=== PATIENT | female | born 1965 | race Caucasian/White ===

== ENCOUNTER → 2016-10-04 | Outpatient (CLI) | payer BC, OTHER ==
[~2016-10-04] MED LIST: ASPI81TA28 PO; CALC1TAB27 PO; OMEG10007 PO; PRLSR20 PO; PROB1TAB16 PO
== END | disposition home or self-care (01) ==
LOC: C.LABSPEC 12:23
PROVIDERS: ATTEND Obstetrics & Gynecology
DX: B37.9 Candidiasis, unspecified (principal)

== ENCOUNTER → 2016-10-13 | Outpatient (CLI) | payer BC | END | disposition home or self-care (01) | LOC: C.PAPS 09:57 | PROVIDERS: ATTEND Obstetrics & Gynecology | DX: Z01.419 Encounter for gynecological examination (general) (routine) without abnormal findings (principal) ==

== ENCOUNTER → 2017-07-07 | Outpatient (CLI) | payer BC ==
--- NOTE | 2017-07-07 09:43 | DIAGNOSTIC IMAGING REPORT ---
ABDOMINAL ULTRASOUND, RIGHT UPPER QUADRANT HISTORY: Gallbladder polyp. Follow-up.. COMPARISON: Abdominal ultrasound 09/08/2015. FINDINGS: Pancreas: The pancreas demonstrates a normal echotexture. Liver: Unremarkable. Gallbladder: No gallbladder wall thickening. No gallstones. Trace gallbladder sludge. No evidence for a gallbladder polyp. CBD: 4 mm. Right kidney: No hydronephrosis. IMPRESSION: No gallbladder polyp identified. Trace gallbladder sludge. Electronically signed by: Jorge Mota M.D. 07/07/2017 9:41 AM Dictated Date/Time: 07/07/2017 9:39 AM
== END | disposition home or self-care (01) ==
LOC: C.ULTR 06:56
PROVIDERS: ATTEND Internal Medicine Gastroenterology
DX: K82.4 Cholesterolosis of gallbladder (principal)

== ENCOUNTER → 2017-08-17 | Day surgery (SDC) | payer BC ==
[2017-08-09 13:58] VITALS: BMI 24.0
[~2017-08-17] VITALS: Ht 162.6 cm; Wt 63.6 kg
[~2017-08-17] MED LIST changes: -CALC1TAB27 PO; +LIDOCAINE HCL 2% 2 ML VIAL (20MG/ML) ONE; +MIDAZOLAM HCL 1 MG/ML 2ML VIAL ONE; +MULT-506 PO; -OMEG10007 PO; +ONDANSETRON INJ 2 MG/ML 2 ML VIAL ONE; +POLY335019 PO; +PROBIOTIC POWDER PO; +PROPOFOL IV EMULSION 10 MG/ML 20 ML VIAL IV ONE; +SODIUM CHLORIDE 0.9% 500ML 500 ML IV ONE
[2017-08-17 12:13] VITALS: Ht 162.6 cm; Wt 63.6 kg
--- NOTE | 2017-08-17 12:52 | Endo History and Physical ---
History & Physical Date of Service: Aug 17, 2017. Chief Complaint: REFLUX DESPITE BEING ON MEDS Referring Physician: DR KITCHEN History of Present Illness pain after swallowing Past Surgical History Hx Cardiac Surgery: No Hx Internal Defibrillator: No Hx Pacemaker: No Hx Abdominal Surgery: No Hx of Implantable Prosthesis: No Hx Post-Op Nausea and Vomiting: No Hx Cancer Surgery: No Hx Thoracic Surgery: No Hx Orthopedic: Yes (LEFT FOOT TOE PINNING, RT SHOULDER ARTHROSCOPY) Hx Urinary Tract Surgery: No Family History None Social History Smoking Status: Never Smoker Hx Substance Use: No Hx Alcohol Use: No Allergies Coded Allergies: Aminoglycosides (Verified Allergy, Intermediate, RASH, 08/17/17) Bacitracin (Verified Allergy, Intermediate, RASH, 08/17/17) Neomycin (Verified Allergy, Intermediate, RASH, 08/17/17) Polymyxin B (Verified Allergy, Intermediate, RASH, 08/17/17) Codeine (Verified Adverse Reaction, Unknown, GI SYMPTOMS, 08/17/17) NAUSEATED Current Medications Reported Home Medications Medications Dose Route/Sig Max Daily Dose Days Date Category Multivitamin (Multivitamins) Tab 1 Tab PO DAILY 08/09/17 Reported Probiotic (Probiotic Product) 1 Tab Tab 1 Tab PO DAILY 08/27/16 Reported Aspirin Ec (Aspirin) 81 Mg Tab 81 Mg PO DAILY 08/27/16 Reported Prilosec (Omeprazole) 20 Mg Capcr 20 Mg PO QAM 08/17/15 Reported Vital Signs Weight (Kilograms): 63.64 Height (Feet): 5 Height (Inches): 4 Date Time Temp Pulse Resp B/P (MAP) Pulse Ox O2 Delivery O2 Flow Rate FiO2 08/17/17 12:19 36.5 66 16 140/76 (97) 100 Room Air Physical Exam General Appearance: WD/WN, no apparent distress Respiratory/Chest: Auscultation: breath sounds normal Cardiovascular: Heart Auscultation: RRR Abdomen: Bowel Sounds: normal Inspection & Palpation: soft, non-distended, no tenderness, guarding & rebound Assessment and Plan EGD with Guillermo performed off acid suppression
--- NOTE | 2017-08-17 13:24 | GI REPORT ---
Procedure Date: 08/17/2017 12:20 PM Procedure: Upper GI endoscopy Indications: Dysphagia, Odynophagia, Gastro-esophageal reflux disease Medicines: Propofol per Anesthesia Complications: No immediate complications. Estimated blood loss: None. Estimated Blood Loss: Estimated blood loss: none. Procedure: Pre-Anesthesia Assessment: - Prior to the procedure, a History and Physical was performed, and patient medications and allergies were reviewed. The patient's tolerance of previous anesthesia was also reviewed. The risks and benefits of the procedure and the sedation options and risks were discussed with the patient. All questions were answered, and informed consent was obtained. Prior Anticoagulants: The patient has taken no previous anticoagulant or antiplatelet agents. ASA Grade Assessment: II - A patient with mild systemic disease. After reviewing the risks and benefits, the patient was deemed in satisfactory condition to undergo the procedure. After obtaining informed consent, the endoscope was passed under direct vision. Throughout the procedure, the patient's blood pressure, pulse, and oxygen saturations were monitored continuously. The On-site loaner was introduced through the mouth, and advanced to the second part of duodenum. The upper GI endoscopy was accomplished without difficulty. The patient tolerated the procedure well. Findings: The examined esophagus was normal. A small hiatus hernia was found. The proximal extent of the gastric folds (end of tubular esophagus) was 37 cm from the incisors. The hiatal narrowing was 39 cm from the incisors. The Z-line was 37 cm from the incisors. The entire examined stomach was normal. The examined duodenum was normal. The cardia and gastric fundus were normal on retroflexion. Retained gastric contents are not identified on this exam. The ALLEN capsule with delivery system was introduced through the mouth and advanced into the esophagus, such that the ALLEN pH capsule was positioned 31 cm from the incisors, which was 6 cm proximal to the EG junction. Suction was applied to the well of the ALLEN pH capsule to suck in the adjacent mucosa of the esophagus using the external vacuum pump set at a minimum vacuum pressure of 550 mmHg for 30 seconds. The ALLEN pH capsule was then deployed by depressing the plunger on top of the handle to advance the locking pin into the mucosa, thereby attaching the capsule to the esophagus. The plunger was then rotated a quarter turn clockwise to release the capsule from the delivery system. The delivery system was then withdrawn. Endoscopy was utilized for probe placement and diagnostic evaluation. Impression: - Normal esophagus. - Small hiatus hernia. - Normal stomach. - Normal examined duodenum. - The ALLEN pH capsule was positioned 31 cm from the naris, which was 6 cm proximal to the EG junction. - No specimens collected. Recommendation: - Discharge patient to home (ambulatory). - Resume regular diet. - Return to GI clinic as previously scheduled. - Pt instructed not to use any form of acid suppression for next 48 hr 9 PPI/H2 blockers/antacids/Tums) MD Dax Wilkins MD 08/17/2017 1:23:32 PM This report has been signed electronically. Note Initiated On: 08/17/2017 12:20 PM I attest to the content of the Intraoperative Record and orders documented therein, exceptions below
--- NOTE | 2017-08-17 13:26 | Discharge Instructions ---
Endoscopy Patient Instructions Date / Procedure(s) Performed Aug 17, 2017. EGD Allergy Information Coded Allergies: Aminoglycosides (Verified Allergy, Intermediate, RASH, 08/17/17) Bacitracin (Verified Allergy, Intermediate, RASH, 08/17/17) Neomycin (Verified Allergy, Intermediate, RASH, 08/17/17) Polymyxin B (Verified Allergy, Intermediate, RASH, 08/17/17) Codeine (Verified Adverse Reaction, Unknown, GI SYMPTOMS, 08/17/17) NAUSEATED Discharge Date / Findings Aug 17, 2017. HH; Guillermo placement Medication Instructions Restart Stopped Medication(s): Reported Home Medications Medications Dose Route/Sig Max Daily Dose Days Date Category Multivitamin (Multivitamins) Tab 1 Tab PO DAILY 08/09/17 Reported Probiotic (Probiotic Product) 1 Tab Tab 1 Tab PO DAILY 08/27/16 Reported Aspirin Ec (Aspirin) 81 Mg Tab 81 Mg PO DAILY 08/27/16 Reported Prilosec (Omeprazole) 20 Mg Capcr 20 Mg PO QAM 08/17/15 Reported Do not restart Prilosec or use any liquid antacids or other acid suppressing medication until the device is returned. Thank You Reported Home Medications Medications Dose Route/Sig Max Daily Dose Days Date Category Multivitamin (Multivitamins) Tab 1 Tab PO DAILY 08/09/17 Reported Probiotic (Probiotic Product) 1 Tab Tab 1 Tab PO DAILY 08/27/16 Reported Aspirin Ec (Aspirin) 81 Mg Tab 81 Mg PO DAILY 08/27/16 Reported Prilosec (Omeprazole) 20 Mg Capcr 20 Mg PO QAM 08/17/15 Reported Do not restart Prilosec or use any liquid antacids or other acid suppressing medication until the device is returned. Thank You Provider Instructions Activity Restrictions - No exercising or heavy lifting for 24 hours. - Do not drink alcohol the day of the procedure. - Do not drive a car or operate machinery until the day after the procedure. - Do not make any important decisions or sign important papers in 24 hours after the procedure. Following Day: - Return to full activity which may include returning to work/school. Diet Start your diet with liquids and light foods (jello, soup, juice, toast). Then eat your usual diet if not nauseated. Treatment For Common After Affects For mild abdominal pain, bloating, or excessive gas: - Rest - Eat lightly - Lie on right side Follow-Up Information Follow-up with DR KITCHEN as scheduled Anesthesia Information What You Should Know You have had a procedure that required some medicine to reduce anxiety and discomfort. This treatment is called moderate sedation. After receiving the treatment, you may be sleepy, but you will be able to breathe on your own. The effects of the treatment may last for several hours. Follow these instructions along with Activity/Diet recommendations noted above: * Do NOT do anything where dizziness or clumsiness would be dangerous. * Rest quietly at home today, then you can be up and about tomorrow. * Have a responsible person stay with you the rest of today. * You may have had an I.V. today. If so, you may take the dressing off later today. Recommendations Call your doctor if: * Trouble breathing * Continuous vomiting for more than 24 hours * Temperature above 101 degrees * Severe abdominal pain or bloating * Pain not relieved by pain medicine ordered * There is increased drainage or redness from any incision * A large amount of rectal bleeding greater than 2-3 tablespoons. (If you had a polyp/s removed or have hemorrhoids, a small amount of blood - from the rectum is to be expected.) * You have any unanswered questions or concerns. IN THE EVENT OF A SERIOUS EMERGENCY, GO TO THE NEAREST EMERGENCY ROOM Your discharge instructions were prepared by provider Dax Mancera. Patient Instructions Signature Page Jada Lynn Patient (or Guardian) Signature/Date: I have read and understand the instructions given to me by my caregivers. Caregiver/RN/Doctor Signature/Date: The above-named patient and/or guardian has received patient instructions on this date. + Original Patient Signature Page (only) stays with chart. Please make copy for patient.
--- NOTE | 2017-08-17 13:53 | Anesthesiology Progress Note ---
Anesthesia Post Op Note Date & Time Aug 17, 2017 at 13:53 Vital Signs Vital Signs Past 12 Hours Date Time Temp Pulse Resp B/P (MAP) Pulse Ox O2 Delivery O2 Flow Rate FiO2 08/17/17 13:45 68 20 100/75 (83) 100 Room Air 08/17/17 13:30 88 18 112/70 (84) 100 Room Air 08/17/17 12:19 36.5 66 16 140/76 (97) 100 Room Air Notes Mental Status: alert / awake / arousable, participated in evaluation Pt Amnestic to Procedure: Yes Nausea / Vomiting: adequately controlled Pain: adequately controlled Airway Patency, RR, SpO2: stable & adequate BP & HR: stable & adequate Hydration State: stable & adequate Anesthetic Complications: no major complications apparent
[2017-08-17 13:59] VITALS: BP 122/83; PULSE 64; O2SAT 100
--- NOTE | 2017-08-29 08:01 | OPERATIVE REPORT ---
DATE OF OPERATION: 08/17/2017 ENDOSCOPY PROCEDURE PROCEDURE TYPE: A 48-hour esophageal pH Guillermo. PREPROCEDURE DIAGNOSES: Heartburn and regurgitation. ENDOSCOPIST: Dax Mancera MD POSTPROCEDURE DIAGNOSES: 1. Normal amounts of acid exposure in the esophagus (see below). 2. No correlation with heartburn and regurgitation and acid exposure in the esophagus (see below). This study was performed off of acid suppressing medication. The Guillermo capsule was placed endoscopically 6 cm above the GE junction (Z line). The fraction time of the esophageal pH is less than 4.00 during the entire study. It was 0.2% (normal range less than 4.2%). The fraction time in upright position for the entire study period was 0.2% and 0.2% for the supine. These represent normal amounts of acid exposure during the entire study. The patient reported a total of 13 events of regurgitation and 7 events of heartburn during the 48 hours. None of the 13 regurgitation events correlated with an acidic esophageal environment. None of the heartburn symptoms correlated with an acidic esophageal environment. On day #1, the fraction time for the total first 24-hour period was 0.4% with upright and supine at 0.5% and 0.3% respectively. 5 of the 13 regurgitation events occurred on the first 24-hour period and again none correlated with the acidic pH. On day #2, the fraction time of pH less than 4.00 in the esophagus was 0.0% with no acid reflux occurring in the upright or supine positions during the second 24-hour period. During this event, the patient did experience 8 events of regurgitation and 7 events of heartburn, none of which correlated with acidic esophageal environment. IMPRESSION: 1. Normal amounts of acid exposure in the upright, supine and total periods on each day and for the entire study. 2. Symptoms of heartburn and regurgitation did not correlate with acid exposure in the esophagus. Consideration for a nonacid reflux as a source of the patient's symptoms could be considered with 24-hour pH impedance on b.i.d. PPI dosing. The patient is aware of these results at her recent clinic visit and plans for the above study at [facility] are in progress. I attest to the content of the Intraoperative Record and any orders documented therein. Any exception s are noted below.
== END | disposition home or self-care (01) ==
LOC: C.GI 11:57
PROVIDERS: ATTEND Internal Medicine Gastroenterology
DX: K21.9 Gastro-esophageal reflux disease without esophagitis (principal); K44.9 Diaphragmatic hernia without obstruction or gangrene; M19.90 Unspecified osteoarthritis, unspecified site; Z79.82 Long term (current) use of aspirin; Z79.899 Other long term (current) drug therapy

== ENCOUNTER → 2017-10-11 | Outpatient (CLI) | payer OTHER ==
[~2017-10-11] MED LIST changes: -LIDOCAINE HCL 2% 2 ML VIAL (20MG/ML) ONE; -MIDAZOLAM HCL 1 MG/ML 2ML VIAL ONE; -ONDANSETRON INJ 2 MG/ML 2 ML VIAL ONE; -POLY335019 PO; -PROBIOTIC POWDER PO; -PROPOFOL IV EMULSION 10 MG/ML 20 ML VIAL IV ONE; -SODIUM CHLORIDE 0.9% 500ML 500 ML IV ONE
--- NOTE | 2017-10-12 15:10 | MAMMOGRAPHY REPORT ---
BILATERAL DIGITAL SCREENING MAMMOGRAM TOMOSYNTHESIS WITH CAD: 10/11/2017 CLINICAL HISTORY: Routine screening. Patient has no complaints. TECHNIQUE: Breast tomosynthesis in addition to standard 2D mammography was performed. Current study was also evaluated with a Computer Aided Detection (CAD) system. COMPARISON: Comparison is made to exams dated: 02/01/2016 mammogram, 01/28/2015 mammogram, 12/02/2013 mamm ogram, 11/28/2012 mammogram, 11/28/2011 mammogram, and 11/25/2010 mammogram - [facility] . BREAST COMPOSITION: There are scattered areas of fibroglandular density in both breasts. FINDINGS: No suspicious masses, calcifications, or areas of architectural distortion are noted in ei ther breast. There has been no significant interval change compared to prior exams. IMPRESSION: ACR BI-RADS CATEGORY 1: NEGATIVE There is no mammographic evidence of malignancy. A 1 year screening mammogram is recommended. The pa tient will receive written notification of the results. Approximately 10% of breast cancers are not detected with mammography. A negative mammographic report should not delay biopsy if a clinically suggestive mass is present. Ragini Vasquez M.D. ah/:10/11/2017 15:14:12 [address] Technician: Rebeca VICKERS(Kirk)(M), [facility] letter sent: Normal 1/2 BI-RADS Code: ACR BI-RADS Category 1: Negative
== END ==
LOC: C.MAMM 14:13
PROVIDERS: ATTEND Internal Medicine
DX: Z12.31 Encounter for screening mammogram for malignant neoplasm of breast (principal)

== ENCOUNTER → 2018-01-03 | Outpatient (CLI) | payer OTHER ==
[~2018-01-03] MED LIST changes: +POLY335019 PO; -PROB1TAB16 PO; +PROBIOTIC POWDER PO
== END | disposition home or self-care (01) ==
LOC: C.PAPS 18:14
PROVIDERS: ATTEND Obstetrics & Gynecology
DX: Z01.419 Encounter for gynecological examination (general) (routine) without abnormal findings (principal)